=== PATIENT | female | born 1990 | race Caucasian/White ===

== ENCOUNTER 2022-10-09 19:00 | Emergency (ER) | payer OTHER, SELFPAY ==
[2022-10-09 19:13] VITALS: BP 140/95; PULSE 84; RESP 16; TEMP 36.7; O2SAT 99; BMI 21.9
[2022-10-09 20:09] LABS: Adenovirus Not Detected (Not Detect); B. parapertussis Not Detected (Not Detecte); Bordetella pertussis Not Detected (Not Detecte); Chlamydophila pneumoniae Not Detected (Not Detect); Coronavirus 229E Not Detected (Not Detect); Coronavirus HKU1 Not Detected (Not Detect); Coronavirus NL 63 Not Detected (Not Detect); Coronavirus OC43 Not Detected (Not Detect); Human Metapneumovirus Not Detected (Not Detect); Human Rhinovirus/Enterovirus Not Detected (Not Detect); Influenza A Not Detected (Not Detect); Influenza B Not Detected (Not Detect); Mycoplasma pneumoniae Not Detected (Not Detect); Parainfluenza Virus 1 Not Detected (Not Detect); Parainfluenza Virus 2 Not Detected (Not Detect); Parainfluenza Virus 3 Detected (Not Detect); Parainfluenza Virus 4 Not Detected (Not Detect); Respiratory Syncytial Virus Not Detected (Not Detect); SARS- CoV-2 Not Detected (Not Detecte)
--- NOTE | 2022-10-09 22:52 | ED.GENADULT ---
HPI - General Adult General Chief complaint: Upper Respiratory Symptoms Stated complaint: cough, not feeling well Time Seen by Provider: 10/09/22 22:48 Source: patient Mode of arrival: Ambulatory Limitations: no limitations History of Present Illness HPI narrative: Patient is a 31-year-old female who is here for evaluation of coughing and not feeling well. No fevers. No vomiting. Symptoms been going on for the past couple days. She has had some sick contacts recently with similar symptoms that she presents with today. She has been trying [id number] cough and cold preparations. Related Data Allergies Allergy/AdvReac Type Severity Reaction Status Date / Time oxcarbazepine Allergy Verified 10/09/22 19:13 [From Trileptal] Review of Systems Constitutional Constitutional: Reports system reviewed and no additional complaints, except as documented Respiratory Respiratory: Reports system reviewed and no additional complaints, except as documented Gastrointestinal Gastrointestinal: Reports system reviewed and no additional complaints, except as documented Integumentary/Breasts Skin/Breast: Reports system reviewed and no additional complaints, except as documented Neurologic Neurologic: Reports system reviewed and no additional complaints, except as documented Patient History Social History Smoking Status: Unknown if ever smoked Smoking Status: Unknown if ever smoked alcohol intake frequency: holidays/special occasions only Substance Use Type: does not use Exam Initial Vital Signs Initial Vital Signs: Vital Signs Temperature 98.1 F 10/09/22 19:13 Pulse Rate 84 10/09/22 19:13 Respiratory Rate 16 10/09/22 19:13 Blood Pressure 140/95 H 10/09/22 19:13 Pulse Oximetry 99 10/09/22 19:13 Oxygen Delivery Method Room Air 10/09/22 19:13 [facility] Head: normal to inspection Resp Effort & Inspection: normal respiratory effort Auscultation: clear to auscultation bilaterally Cardio Rate: regular rate Course Orders Ordered: ED Orders 10/09/22 19:15 Respiratory Panel (Film Array) Stat Vital Signs Vital signs: Vital Signs - 8 hr 10/09/22 22:58 Pulse Rate 69 Respiratory Rate 18 Blood Pressure 112/75 Pulse Oximetry 98 Oxygen Delivery Method Room Air Medical Decision Making Lab Data Labs: Lab Results 10/09/22 Range/Units 19:15 Chlamy pneumoniae PCR Not detected (Not Detect) Adenovirus (PCR) Not detected (Not Detect) B. pertussis DNA (PCR) Not detected (Not Detecte) B.parapertussis DNA PCR Not detected (Not Detecte) Coronavirus OC43 (PCR) Not detected (Not Detect) Coronavirus HKU1 (PCR) Not detected (Not Detect) Coronavirus 229E (PCR) Not detected (Not Detect) SARS-CoV-2 (PCR) Not detected (Not Detecte) Coronavirus NL63 (PCR) Not detected (Not Detect) Human Metapneumovir PCR Not detected (Not Detect) Influenza Type A (PCR) Not detected (Not Detect) Influenza Type B (PCR) Not detected (Not Detect) M. pneumoniae (PCR) Not detected (Not Detect) Parainfluenza 1 (PCR) Not detected (Not Detect) Parainfluenza 2 (PCR) Not detected (Not Detect) Parainfluenza 3 (PCR) Detected H (Not Detect) Parainfluenza 4 (PCR) Not detected (Not Detect) RSV (PCR) Not detected (Not Detect) Entero/Rhino (PCR) Not detected (Not Detect) MDM Narrative Medical decision making narrative: Lungs are clear. No respiratory distress. Labs positive for parainfluenza virus 3. This does explain her presenting symptoms today. No indication for antibiotics. No indication for chest x-ray. I did discuss the viral nature of her symptoms. Will discharge patient home with instructions she can continue to take the [id number] medications as needed. She was given return precautions. She expressed understanding and agreement. Discharge Plan Departure Patient Disposition: Home Clinical Impression: Infection due to parainfluenza virus 3 Instructions: DI for Viral Upper Respiratory Infection -- Adult Activity Restrictions/Additional Instructions: You can continue with the [id number] cough and cold preparations. You can also do Tylenol or ibuprofen for any fevers. Return to the emergency department for any worsening symptoms. Stand Alone Forms: Patient Portal/API
[2022-10-09 22:58] VITALS: BP 112/75; PULSE 69; RESP 18; O2SAT 98
== END 2022-10-09 22:59 | disposition home or self-care (01) ==
PROVIDERS: Emergency Provider Emergency Medicine
DX: J06.9 Acute upper respiratory infection, unspecified (principal); B34.8 Other viral infections of unspecified site; Z20.822 Contact with and (suspected) exposure to COVID-19
CPT/HCPCS: 87633; 99281; 99282